=== PATIENT | female | born 1965 | race African-American/Black ===

== ENCOUNTER → 2018-04-10 | Day surgery (SDC) | payer OTHER ==
--- NOTE | 2018-04-11 02:31 | OP ---
DATE OF OPERATION: 04/10/2018 PREOPERATIVE DIAGNOSIS: Abnormal bilateral mammography. POSTOPERATIVE DIAGNOSIS: Abnormal bilateral mammography. PROCEDURE: Bilateral stereotactic needle biopsy with clips. SURGEON: Mary Muhammad MD ANESTHESIA: Local. COMPLICATIONS: None. This is a sterile procedure. INDICATIONS FOR PROCEDURE: The patient had routine screening mammography that noted clustering marked calcifications of the right upper inner quadrant as well as the left upper outer quadrant for which a biopsy is recommended by the radiologist. The procedure was discussed with all of the questions answered. PROCEDURE IN DETAIL: Patient was brought to [facility] in [place], and placed on the [facility] table. First the left breast was approached with the cranial approach. The calcifications in the upper outer left breast were identified. A sterile prep was obtained. Target was chosen with a positive stroke margin. Using betadine with 1% lidocaine a 10-gauge Suros device was used to take several cores in this area. The specimen radiographs show the cores with calcifications. These were handled with usual calcification protocol. A clip was deployed in the area. Hemostasis was ensured with direct pressure. The Steri-Strips were used to close the incision. She tolerated the procedure well. Next, the patient was repositioned and we did a cranial approach. The calcifications of the upper inner right breast were identified. A sterile prep was obtained. A target was chosen. There was positive stroke margin. Using betadine and 1% lidocaine, a 10-gauge Suros device was used to take several cores from this area. Specimen radiograph showed cores with calcifications. These were handled with usual calcification protocol. A clip was deployed in the area. Hemostasis was ensured with direct pressure. The incision was closed with Steri-Strips. She tolerated the procedure well and left the breast imaging center in good condition. MARY MUHAMMAD M.D. [id number]
--- NOTE | 2018-04-11 15:37 | PATH ---
Surgical Pathology Report Patient Name: BERLIN ROGERS [facility]. Rec. #: [id number] /Age/Gender: 1965 (Age: 52) / F Account: [id number] Location: [facility] Taken: 04/10/2018 Received: 04/10/2018 Reported: 04/11/2018 Physicians: Mary Amaya M.D. Specimen(s) Received A: LEFT BREAST SPECIMEN WITH CALCIFICATIONS B: LEFT BREAST SPECIMEN WITHOUT CALCIFICATIONS C: RIGHT BREAST SPECIMEN WITH CALCIFICATIONS D: RIGHT BREAST SPECIMENS WITHOUT CALCIFICATIONS Clinical History Nonpalpable lesion Mammographic findings: Microcalcification, suspicious Final Diagnosis A. BREAST, LEFT, WITH CALCIFICATIONS, STEREOTACTIC CORE BIOPSY: BENIGN BREAST TISSUE WITH FIBROCYSTIC CHANGES INCLUDING STROMAL FIBROSIS, MICROCYSTS, AND ASSOCIATED CALCIFICATIONS. B. BREAST, LEFT, WITHOUT CALCIFICATIONS, STEREOTACTIC CORE BIOPSY: BENIGN BREAST TISSUE WITH FIBROCYSTIC CHANGES INCLUDING STROMAL FIBROSIS, MICROCYSTS, AND ASSOCIATED CALCIFICATIONS. C. BREAST, RIGHT, WITH CALCIFICATIONS, STEREOTACTIC CORE BIOPSY: BENIGN BREAST TISSUE WITH FIBROCYSTIC CHANGES INCLUDING STROMAL FIBROSIS, MICROCYSTS, FOCAL USUAL DUCTAL HYPERPLASIA, AND ASSOCIATED MICROCALCIFICATIONS. D. BREAST, RIGHT, WITHOUT CALCIFICATIONS, STEREOTACTIC CORE BIOPSY: BENIGN BREAST TISSUE. Electronically Signed Marnie Garvey M.D. Gross Description A. Received in formalin labeled "left breast with calcification," are 8 romero-yellow, cylindrical portions of fibroadipose tissue ranging from 0.7-3.8 cm in length and averaging 0.3 cm in diameter. The specimens are submitted in toto in 2 cassettes. B. Received in formalin labeled "left breast without calcifications," are 8 romero-yellow, cylindrical portions of fibroadipose tissue ranging from 0.5-1.6 cm in length and averaging 0.3 cm in diameter. The specimens are submitted in toto in 2 cassettes. C. Received in formalin labeled "right breast with calcification," are 9 romero-yellow, cylindrical portions of fibroadipose tissue ranging from 0.7-3.3 cm in length and averaging 0.3 cm in diameter. The specimens are submitted in toto in 2 cassettes. D. Received in formalin labeled "right breast without calcifications," are 6 romero-yellow, cylindrical portions of fibroadipose tissue ranging from 0.5-3.0 cm in length and averaging 0.2 cm in diameter. The specimens are submitted in toto in one cassette. Time to formalin fixation: 5 minutes Total formalin fixation time: Approximately 8 hours. DL04/10/2018 saudi04/10/2018
== END | disposition home or self-care (01) ==
LOC: FMAMMOTONE 08:26
PROVIDERS: ATTEND Surgery
PROC: 0HBV3ZX Excision of Bilateral Breast, Percutaneous Approach, Diagnostic (ICD-10-PCS; principal; 2018-04-10)
DX: N60.42 Mammary duct ectasia of left breast (principal); N60.32 Fibrosclerosis of left breast; N60.12 Diffuse cystic mastopathy of left breast; N60.82 Other benign mammary dysplasias of left breast; N64.89 Other specified disorders of breast; R92.1 Mammographic calcification found on diagnostic imaging of breast
CPT/HCPCS: 19081; 87899; 88305-TC; A4648